=== PATIENT | female | born 1995 | race Caucasian/White ===

== ENCOUNTER → 2020-05-31 | Outpatient (CLI) | payer OTHER ==
--- NOTE | 2020-05-31 14:15 | US ---
EXAMINATION TYPE: US thyroid st tissue head/neck DATE OF EXAM: 05/31/2020 COMPARISON: NONE CLINICAL HISTORY: R22.0 SWELLING/MASS. patient states feeling constant lump in anterior mid neck at a karthikeyan of thyroid. GLAND SIZE: Right Lobe: 4.9 x 1.3 x 1.5 cm Overall Parenchyma: heterogenous Left Lobe: 4.6 x 0.9 x 0.8 cm Overall Parenchyma: heterogeneous Isthmus Thickness: 0.2 cm NODULES RIGHT: # of nodules measured on right: 2 1. 1.4 X 0.9 x 0.8 cm almost completely solid nodule at the mid pole with poorly defined margins; p resent with microcalcifications. This nodule is wider than tall and shows intranodular vascularity. Prior size: no prior 2. 0.2 X 0.3 x 0.2 cm hypoechoic nodule at the mid pole with well-defined margins. This nodule is w ider than tall and shows no intranodular vascularity. Prior size: no prior LEFT: # of nodules measured on left: 1 1. 0.6 X 0.5 x 0.4 cm mixed nodule at the mid pole with well-defined margins. This nodule is wider than tall and shows intranodular vascularity. Prior size: no prior ISTHMUS: # of nodules measured in the isthmus: 0 Bilateral neck scanned, no evidence of lymphadenopathy, masses or fluid collections. Heterogeneous normal-sized thyroid with few subcentimeter nodules, there is dominant 1.4 cm nodule no kamaljit. IMPRESSION: As above. The dominant nodule is a TR 4 lesion. Moderately suspicious. Follow if ? 1 cm and less than 1.5 cm at 1, 2, 3, and 5 y intervals advised.
== END | disposition home or self-care (01) ==
LOC: RADUSWWP 12:07
PROVIDERS: ATTEND Internal Medicine
DX: E04.2 Nontoxic multinodular goiter (principal); Z88.5 Allergy status to narcotic agent
CPT/HCPCS: 76536

== ENCOUNTER 2020-06-14 | Emergency (ER) | payer OTHER ==
[2020-06-14] MEDS ORDERED: SODIUM CHLORIDE 0.9% 1,000 ML IV STA (00:49)
[2020-06-14] MEDS ORDERED: LORazepam 1 MG TAB PO STA (00:51)
--- NOTE | 2020-06-14 00:54 | ED ---
General Adult HPI - General Stated complaint: syncope Time Seen by Provider: 06/14/20 00:36 Source: RN notes reviewed - History of Present Illness Initial comments: 24-year-old female with a past medical history of anxiety, panic attacks, depression presents to the emergency room for several complaints. Patient states these have been ongoing for 2 weeks. She was seen at [facility] and was diagnosed with a panic attack. Patient reports that she has been having feelings of lightheadedness she feels like she is going to pass out. She has also had chest pain that she states worsened when she touches her chest. Patient states she has also had headaches. This morning she states her vision was shaky. She denies fevers or chills. She has also been nauseous episodes of vomiting. She states she was tested for Covid and it was negative.Patient has no other complaints at this time including shortness of breath, chest pain, abdominal pain, nausea or vomiting, or visual changes. - Related Data Home Medications Medication Instructions Recorded Confirmed Pediatric Multivitamin No.30 2 tab PO DAILY 04/04/16 04/04/16 [Multivitamin Children's Gummies] Previous Rx's Medication Instructions Recorded Acetaminophen-Codeine 300-30mg 1 tab PO Q4H PRN #30 tablet 04/05/16 [Tylenol #3] Ibuprofen [Motrin] 600 mg PO Q6HR PRN #30 tab 04/05/16 Allergies Allergy/AdvReac Type Severity Reaction Status Date / Time morphine Allergy Itching Verified 04/04/16 06:31 vancomycin Allergy Rash/Hives Verified 04/04/16 06:30 Review of Systems ROS Statement: Those systems with pertinent positive or pertinent negative responses have been documented in the HPI. ROS Other: All systems not noted in ROS Statement are negative. Past Medical History Past Medical History: No Reported History Additional Past Medical History / Comment(s): Panic attacks, anxiety, depression, ADHD History of Any Multi-Drug Resistant Organisms: MRSA Date of last positivie culture/infection: 2009 MDRO Source:: left leg Additional Past Surgical History / Comment(s): hand Past Psychological History: Anxiety, Depression Past Alcohol Use History: Rare Past Drug Use History: None Reported - Past Family History Mother Family Medical History: No Reported History General Exam General appearance: alert, in no apparent distress, anxious Head exam: Present: atraumatic, normocephalic, normal inspection Eye exam: Present: normal appearance, PERRL, EOMI. Absent: scleral icterus, conjunctival injection, periorbital swelling ENT exam: Present: normal exam, mucous membranes moist Neck exam: Present: normal inspection, full ROM. Absent: tenderness, meningismus, lymphadenopathy Respiratory exam: Present: normal lung sounds bilaterally, chest wall tenderness (Anterior chest wall tenderness). Absent: respiratory distress, wheezes, rales, rhonchi, stridor Cardiovascular Exam: Present: regular rate, normal rhythm, normal heart sounds. Absent: systolic murmur, diastolic murmur, rubs, gallop, clicks GI/Abdominal exam: Present: soft, normal bowel sounds. Absent: distended, tenderness, guarding, rebound, rigid Neurological exam: Present: alert Course Vital Signs 06/14/20 06/14/20 06/14/20 00:52 02:22 02:59 Temperature 98.7 F 98.2 F Pulse Rate 74 97 76 Respiratory 19 18 19 Rate Blood Pressure 116/94 131/68 115/82 O2 Sat by Pulse 99 100 100 Oximetry EKG Findings - EKG Comments: EKG Findings:: Normal sinus rhythm, ventricular rate 73, TN interval 116, QTc 464 Medical Decision Making - Medical Decision Making Vitals are stable. CBC CMP unremarkable. Troponin is negative. Urinalysis negative. HCG not detected. CT brain shows a negative scan. Chest x-ray shows negative films. Patient reevaluated after fluids, think much better. At this time patient is stable for discharge, follow up with primary care. She will return here for any worsening symptoms. - Lab Data Result diagrams: 06/14/20 01:47 06/14/20 01:47 Lab Results 06/14/20 06/14/20 06/14/20 Range/Units 01:36 01:36 01:47 WBC 5.1 (3.8-10.6) k/uL RBC 4.73 (3.80-5.40) m/uL Hgb 11.3 L (11.4-16.0) gm/dL Hct 36.8 (34.0-46.0) % MCV 77.9 L (80.0-100.0) fL MCH 23.9 L (25.0-35.0) pg MCHC 30.7 L (31.0-37.0) g/dL RDW 15.3 (11.5-15.5) % Plt Count 176 (150-450) k/uL Neutrophils % 48 % Lymphocytes % 37 % Monocytes % 8 % Eosinophils % 4 % Basophils % 1 % Neutrophils # 2.5 (1.3-7.7) k/uL Lymphocytes # 1.9 (1.0-4.8) k/uL Monocytes # 0.4 (0-1.0) k/uL Eosinophils # 0.2 (0-0.7) k/uL Basophils # 0.1 (0-0.2) k/uL Hypochromasia Moderate Sodium (137-145) mmol/L Potassium (3.5-5.1) mmol/L Chloride (98-107) mmol/L Carbon Dioxide (22-30) mmol/L Anion Gap mmol/L BUN (7-17) mg/dL Creatinine (0.52-1.04) mg/dL Est GFR (CKD-EPI)AfAm (>60 ml/min/1.73 sqM) Est GFR (CKD-EPI)NonAf (>60 ml/min/1.73 sqM) Glucose (74-99) mg/dL Calcium (8.4-10.2) mg/dL Total Bilirubin (0.2-1.3) mg/dL AST (14-36) U/L ALT (4-34) U/L Alkaline Phosphatase (38-126) U/L Troponin I (0.000-0.034) ng/mL Total Protein (6.3-8.2) g/dL Albumin (3.5-5.0) g/dL Urine Color Yellow Urine Appearance Clear (Clear) Urine pH 6.0 (5.0-8.0) Ur Specific [place] 1.038 H (1.001-1.035) Urine Protein 1+ H (Negative) Urine Glucose (UA) Negative (Negative) Urine Ketones Trace H (Negative) Urine Blood Negative (Negative) Urine Nitrite Negative (Negative) Urine Bilirubin Negative (Negative) Urine Urobilinogen <2.0 (<2.0) mg/dL Ur Leukocyte Esterase Negative (Negative) Urine RBC 2 (0-5) /hpf Urine WBC 1 (0-5) /hpf Ur Squamous Epith Cells 1 (0-4) /hpf Urine Mucus Many H (None) /hpf Urine HCG, Qual Not Detected (Not Detectd) 06/14/20 06/14/20 Range/Units 01:47 01:47 WBC (3.8-10.6) k/uL RBC (3.80-5.40) m/uL Hgb (11.4-16.0) gm/dL Hct (34.0-46.0) % MCV (80.0-100.0) fL MCH (25.0-35.0) pg MCHC (31.0-37.0) g/dL RDW (11.5-15.5) % Plt Count (150-450) k/uL Neutrophils % % Lymphocytes % % Monocytes % % Eosinophils % % Basophils % % Neutrophils # (1.3-7.7) k/uL Lymphocytes # (1.0-4.8) k/uL Monocytes # (0-1.0) k/uL Eosinophils # (0-0.7) k/uL Basophils # (0-0.2) k/uL Hypochromasia Sodium 138 (137-145) mmol/L Potassium 4.1 (3.5-5.1) mmol/L Chloride 102 (98-107) mmol/L Carbon Dioxide 27 (22-30) mmol/L Anion Gap 9 mmol/L BUN 13 (7-17) mg/dL Creatinine 0.53 (0.52-1.04) mg/dL Est GFR (CKD-EPI)AfAm >90 (>60 ml/min/1.73 sqM) Est GFR (CKD-EPI)NonAf >90 (>60 ml/min/1.73 sqM) Glucose 95 (74-99) mg/dL Calcium 9.7 (8.4-10.2) mg/dL Total Bilirubin 1.0 (0.2-1.3) mg/dL AST 68 H (14-36) U/L ALT 52 H (4-34) U/L Alkaline Phosphatase 68 (38-126) U/L Troponin I <0.012 (0.000-0.034) ng/mL Total Protein 8.6 H (6.3-8.2) g/dL Albumin 5.0 (3.5-5.0) g/dL Urine Color Urine Appearance (Clear) Urine pH (5.0-8.0) Ur Specific [place] (1.001-1.035) Urine Protein (Negative) Urine Glucose (UA) (Negative) Urine Ketones (Negative) Urine Blood (Negative) Urine Nitrite (Negative) Urine Bilirubin (Negative) Urine Urobilinogen (<2.0) mg/dL Ur Leukocyte Esterase (Negative) Urine RBC (0-5) /hpf Urine WBC (0-5) /hpf Ur Squamous Epith Cells (0-4) /hpf Urine Mucus (None) /hpf Urine HCG, Qual (Not Detectd) Disposition Clinical Impression: Light headedness Disposition: HOME SELF-CARE Condition: Good Instructions (If sedation given, give patient instructions): Lightheadedness (ED) Additional Instructions: Please drink plenty of fluids. Please follow-up with your doctor in one to 2 days. Return to the emergency room for any worsening symptoms. Is patient prescribed a controlled substance at d/c from ED?: No Referrals: Rigo Wiley MD [Primary Care Provider] - 1-2 days Dontrell Coyne [STAFF PHYSICIAN] - 1-2 days Time of Disposition: 03:25
[2020-06-14 01:43] LABS: Appearance,Urine Clear (Clear); Bilirubin,Urine Negative (Negative); Blood,Urine Negative (Negative); Color,Urine Yellow; Glucose,Urine (UA) Negative (Negative); Ketones,Urine Trace (Negative); Leukocyte Esterase,Urine Negative (Negative); Mucus,Urine Many /hpf; Nitrite,Urine Negative (Negative); Protein,Urine 1+ (Negative); RBC,Urine 2 /hpf (0-5); Specific Gravity,Urine 1.038 (1.001-1.035); Squamous Epithelial Cell,Urine 1 /hpf (0-4); Urobilinogen,Urine <2.0 mg/dL (<2.0); WBC,Urine 1 /hpf (0-5)
[2020-06-14 02:27] VITALS: TEMP 98.2
[2020-06-14 02:28] LABS: Basophils # (A) 0.1 k/uL (0-0.2); Basophils % (A) 1 %; Eosinophils # (A) 0.2 k/uL (0-0.7); Eosinophils % (A) 4 %; HCT 36.8 % (34.0-46.0); HGB 11.3 gm/dL (11.4-16.0); Hypochromasia Moderate; Lymphocytes # (A) 1.9 k/uL (1.0-4.8); Lymphocytes % (A) 37 %; MCH 23.9 pg (25.0-35.0); MCHC 30.7 g/dL (31.0-37.0); MCV 77.9 fL (80.0-100.0); Mean Platelet Volume 7.1; Monocytes # (A) 0.4 k/uL (0-1.0); Monocytes % (A) 8 %; Neutrophils # (A) 2.5 k/uL (1.3-7.7); Neutrophils % (A) 48 %; Platelet Count 176 k/uL (150-450); RBC 4.73 m/uL (3.80-5.40); RDW 15.3 % (11.5-15.5); WBC 5.1 k/uL (3.8-10.6)
[2020-06-14 02:38] LABS: ALT 52 U/L (4-34); AST 68 U/L (14-36); African American GFR (CKD) >90 (>60 ml/min/1.73 sqM); Alkaline Phosphatase 68 U/L (38-126); Anion Gap 9 mmol/L; Blood Urea Nitrogen 13 mg/dL (7-17); Calcium 9.7 mg/dL (8.4-10.2); Carbon Dioxide 27 mmol/L (22-30); Chloride 102 mmol/L (98-107); Glucose 95 mg/dL (74-99); Non-African American GFR(CKD) >90 (>60 ml/min/1.73 sqM); Potassium 4.1 mmol/L (3.5-5.1); Sodium 138 mmol/L (137-145); Total Protein 8.6 g/dL (6.3-8.2)
--- NOTE | 2020-06-14 02:57 | CT ---
EXAM: CT Head Without Intravenous Contrast CLINICAL HISTORY: Syncope TECHNIQUE: Axial computed tomography images of the head/brain without intravenous contrast. CTDI is 45.37 mGy and DLP is 1039 mGy-cm. This CT exam was performed using one or more of the following dose reduction techniques: automated exposure control, adjustment of the mA and/or kV according to patient size, and/or use of iterative reconstruction technique. COMPARISON: No relevant prior studies available. FINDINGS: Brain: Unremarkable. No acute intracranial hemorrhage, edema or abnormal mass-effect. Ventricles: Unremarkable. No ventriculomegaly. Bones/joints: Unremarkable. No acute fracture. Soft tissues: Unremarkable. Sinuses: Unremarkable as visualized. No acute sinusitis. Mastoid air cells: Unremarkable as visualized. No mastoid effusion. IMPRESSION: Negative head/brain CT.
--- NOTE | 2020-06-14 03:06 | XR ---
EXAM: XR Chest, 2 Views CLINICAL HISTORY: Syncope. TECHNIQUE: Frontal and lateral views of the chest. COMPARISON: No relevant prior studies available. FINDINGS: Lungs: Unremarkable. No infiltration, atelectasis or mass density. Pleural space: Unremarkable. No pneumothorax. No pleural fluid. Heart: Unremarkable. No cardiomegaly. Mediastinum: Unremarkable. Bones/joints: Unremarkable. No acute abnormalities. IMPRESSION: Negative chest x-rays.
[2020-06-14 03:36] VITALS: BP 115/90; PULSE 95; RESP 16
== END 2020-06-14 03:37 | disposition home or self-care (01) ==
LOC: EC
DX: R42 Dizziness and giddiness (principal); R11.2 Nausea with vomiting, unspecified; F17.200 Nicotine dependence, unspecified, uncomplicated; Z88.1 Allergy status to other antibiotic agents; Z88.5 Allergy status to narcotic agent; Z86.14 Personal history of Methicillin resistant Staphylococcus aureus infection; Z20.828 Contact with and (suspected) exposure to other viral communicable diseases
CPT/HCPCS: 36415; 70450; 71046; 80053; 81001; 81025; 84484; 85025; 93005; 96360; 99284

== ENCOUNTER 2020-10-22 12:49 | Observation (INO) | payer OTHER ==
[2020-10-22] MEDS ORDERED: SODIUM CHLORIDE 0.9% 1,000 ML IV STA (13:21)
[2020-10-22] MEDS ORDERED: ONDANSETRON 4 MG/2 ML VIAL IVP STA ×2 (13:21→14:51)
[2020-10-22] MEDS ORDERED: LORazepam 2 MG/ML INJ IV STA (13:22)
--- NOTE | 2020-10-22 13:24 | ED ---
General Adult HPI - General Chief complaint: Dizziness Stated complaint: Near syncope, R arm numbness Time Seen by Provider: 10/22/20 13:15 Source: patient, RN notes reviewed, old records reviewed Mode of arrival: ambulatory Limitations: physical limitation - History of Present Illness Initial comments: 25-year-old female presenting with nausea and vomiting. Symptoms began this morning. She's had multiple episodes of vomiting. No diarrhea. No abdominal pain. No fever. She does admit to heavy alcohol consumption yesterday and a small amount of alcohol consumption this morning. She states that she does drink heavily on a daily basis. She denies current stating she is currently on her menstrual cycle. No fever. No one else is sick. - Related Data Home Medications Medication Instructions Recorded Confirmed Pediatric Multivitamin No.30 2 tab PO DAILY 04/04/16 04/04/16 [Multivitamin Children's Gummies] Previous Rx's Medication Instructions Recorded Acetaminophen-Codeine 300-30mg 1 tab PO Q4H PRN #30 tablet 04/05/16 [Tylenol #3] Ibuprofen [Motrin] 600 mg PO Q6HR PRN #30 tab 04/05/16 Allergies Allergy/AdvReac Type Severity Reaction Status Date / Time diphenhydramine Allergy paradoxal Verified 10/22/20 13:02 [From Benadryl] affect morphine Allergy Itching Verified 10/22/20 13:02 vancomycin Allergy Rash/Hives Verified 10/22/20 13:02 Review of Systems ROS Statement: Those systems with pertinent positive or pertinent negative responses have been documented in the HPI. ROS Other: All systems not noted in ROS Statement are negative. Past Medical History Past Medical History: No Reported History Additional Past Medical History / Comment(s): Panic attacks, anxiety, depression, ADHD History of Any Multi-Drug Resistant Organisms: MRSA Date of last positivie culture/infection: 2009 MDRO Source:: left leg Additional Past Surgical History / Comment(s): hand Past Psychological History: Anxiety, Depression Smoking Status: Current every day smoker Past Alcohol Use History: Daily, Heavy Past Drug Use History: None Reported - Past Family History Mother Family Medical History: No Reported History General Exam Limitations: physical limitation General appearance: alert, in no apparent distress, other (Tremulous) Head exam: Present: atraumatic, normocephalic ENT exam: Present: mucous membranes moist Neck exam: Present: normal inspection. Absent: tenderness, meningismus Respiratory exam: Present: normal lung sounds bilaterally. Absent: respiratory distress, wheezes Cardiovascular Exam: Present: normal rhythm, tachycardia GI/Abdominal exam: Present: soft. Absent: distended, tenderness, guarding, rebound Extremities exam: Present: normal inspection, normal capillary refill. Absent: pedal edema, calf tenderness Neurological exam: Present: alert, oriented X3, CN II-XII intact. Absent: motor sensory deficit Psychiatric exam: Present: normal affect, normal mood Skin exam: Present: warm, dry, intact. Absent: cyanosis, diaphoretic Course Vital Signs 10/22/20 10/22/20 10/22/20 12:56 14:00 14:10 Temperature 98.1 F Pulse Rate 127 H 113 H 108 H Respiratory 18 18 13 Rate Blood Pressure 160/89 139/99 138/94 O2 Sat by Pulse 100 99 98 Oximetry 10/22/20 15:00 Temperature Pulse Rate 110 H Respiratory 16 Rate Blood Pressure 143/88 O2 Sat by Pulse 100 Oximetry EKG Findings - EKG Comments: EKG Findings:: EKG: Sinus tachycardia, possible left atrial enlargement, rate of 1:15, AR interval 132, QRS duration 74, QTC [address] segment elevation. Medical Decision Making - Medical Decision Making 25 no female nausea vomiting, lightheadedness. Alcohol consumption. Patient is tachycardic, tremulous, with acute nausea and vomiting on presentation. She is afebrile. No abdominal pain complaints. Only vomiting. She's given fluids, Zofran, Ativan. She does have some improvement. Laboratory testing reveals significant abnormalities including hypokalemia, metabolic acidosis, lactic acidosis, urinalysis showed 2+ ketones consistent with dehydration. She is continued on IV hydration as well as symptomatic control. Repeat lactic is improved at 3.7. She will be placed in observation for continuous IV hydration and symptom control awaiting normalization of electrolytes and acidosis. Case discussed with Dr. Pinzon who will admit. - Lab Data Result diagrams: 10/22/20 13:29 10/22/20 13:29 Lab Results 10/22/20 10/22/20 10/22/20 Range/Units 13:29 13:29 13:29 WBC 7.1 (3.8-10.6) k/uL RBC 4.73 (3.80-5.40) m/uL Hgb 12.2 (11.4-16.0) gm/dL Hct 39.7 (34.0-46.0) % MCV 84.0 (80.0-100.0) fL MCH 25.9 (25.0-35.0) pg MCHC 30.8 L (31.0-37.0) g/dL RDW 16.1 H (11.5-15.5) % Plt Count 295 (150-450) k/uL MPV 6.8 Neutrophils % 76 % Lymphocytes % 15 % Monocytes % 6 % Eosinophils % 1 % Basophils % 1 % Neutrophils # 5.4 (1.3-7.7) k/uL Lymphocytes # 1.0 (1.0-4.8) k/uL Monocytes # 0.4 (0-1.0) k/uL Eosinophils # 0.1 (0-0.7) k/uL Basophils # 0.0 (0-0.2) k/uL Hypochromasia Moderate Anisocytosis Slight PT 10.6 (9.0-12.0) sec INR 1.0 (<1.2) APTT 21.6 L (22.0-30.0) sec Sodium (137-145) mmol/L Potassium (3.5-5.1) mmol/L Chloride (98-107) mmol/L Carbon Dioxide (22-30) mmol/L Anion Gap mmol/L BUN (7-17) mg/dL Creatinine (0.52-1.04) mg/dL Est GFR (CKD-EPI)AfAm (>60 ml/min/1.73 sqM) Est GFR (CKD-EPI)NonAf (>60 ml/min/1.73 sqM) Glucose (74-99) mg/dL Plasma Lactic Acid Jorge (0.7-2.0) mmol/L Calcium (8.4-10.2) mg/dL Magnesium (1.6-2.3) mg/dL Total Bilirubin (0.2-1.3) mg/dL AST (14-36) U/L ALT (4-34) U/L Alkaline Phosphatase (38-126) U/L Troponin I (0.000-0.034) ng/mL Total Protein (6.3-8.2) g/dL Albumin (3.5-5.0) g/dL Amylase (30-110) U/L Lipase (23-300) U/L Urine Color Yellow Urine Appearance Cloudy H (Clear) Urine pH 5.5 (5.0-8.0) Ur Specific [place] 1.022 (1.001-1.035) Urine Protein 1+ H (Negative) Urine Glucose (UA) Negative (Negative) Urine Ketones 2+ H (Negative) Urine Blood Negative (Negative) Urine Nitrite Negative (Negative) Urine Bilirubin Negative (Negative) Urine Urobilinogen <2.0 (<2.0) mg/dL Ur Leukocyte Esterase Negative (Negative) Urine RBC 7 H (0-5) /hpf Urine WBC 5 (0-5) /hpf Ur Squamous Epith Cells 12 H (0-4) /hpf Amorphous Sediment Rare H (None) /hpf Urine Bacteria Occasional H (None) /hpf Urine Mucus Many H (None) /hpf Urine HCG, Qual (Not Detectd) 10/22/20 10/22/20 10/22/20 Range/Units 13:29 13:29 13:29 WBC (3.8-10.6) k/uL RBC (3.80-5.40) m/uL Hgb (11.4-16.0) gm/dL Hct (34.0-46.0) % MCV (80.0-100.0) fL MCH (25.0-35.0) pg MCHC (31.0-37.0) g/dL RDW (11.5-15.5) % Plt Count (150-450) k/uL MPV Neutrophils % % Lymphocytes % % Monocytes % % Eosinophils % % Basophils % % Neutrophils # (1.3-7.7) k/uL Lymphocytes # (1.0-4.8) k/uL Monocytes # (0-1.0) k/uL Eosinophils # (0-0.7) k/uL Basophils # (0-0.2) k/uL Hypochromasia Anisocytosis PT (9.0-12.0) sec INR (<1.2) APTT (22.0-30.0) sec Sodium 139 (137-145) mmol/L Potassium 3.2 L (3.5-5.1) mmol/L Chloride 102 (98-107) mmol/L Carbon Dioxide 15 L (22-30) mmol/L Anion Gap 22 mmol/L BUN 12 (7-17) mg/dL Creatinine 0.47 L (0.52-1.04) mg/dL Est GFR (CKD-EPI)AfAm >90 (>60 ml/min/1.73 sqM) Est GFR (CKD-EPI)NonAf >90 (>60 ml/min/1.73 sqM) Glucose 108 H (74-99) mg/dL Plasma Lactic Acid Jorge 8.0 H* (0.7-2.0) mmol/L Calcium 9.2 (8.4-10.2) mg/dL Magnesium (1.6-2.3) mg/dL Total Bilirubin 0.9 (0.2-1.3) mg/dL AST 100 H (14-36) U/L ALT 73 H (4-34) U/L Alkaline Phosphatase 88 (38-126) U/L Troponin I (0.000-0.034) ng/mL Total Protein 9.0 H (6.3-8.2) g/dL Albumin 5.4 H (3.5-5.0) g/dL Amylase 60 (30-110) U/L Lipase 75 (23-300) U/L Urine Color Urine Appearance (Clear) Urine pH (5.0-8.0) Ur Specific [place] (1.001-1.035) Urine Protein (Negative) Urine Glucose (UA) (Negative) Urine Ketones (Negative) Urine Blood (Negative) Urine Nitrite (Negative) Urine Bilirubin (Negative) Urine Urobilinogen (<2.0) mg/dL Ur Leukocyte Esterase (Negative) Urine RBC (0-5) /hpf Urine WBC (0-5) /hpf Ur Squamous Epith Cells (0-4) /hpf Amorphous Sediment (None) /hpf Urine Bacteria (None) /hpf Urine Mucus (None) /hpf Urine HCG, Qual Not Detected (Not Detectd) 10/22/20 10/22/20 10/22/20 Range/Units 13:29 13:29 14:39 WBC (3.8-10.6) k/uL RBC (3.80-5.40) m/uL Hgb (11.4-16.0) gm/dL Hct (34.0-46.0) % MCV (80.0-100.0) fL MCH (25.0-35.0) pg MCHC (31.0-37.0) g/dL RDW (11.5-15.5) % Plt Count (150-450) k/uL MPV Neutrophils % % Lymphocytes % % Monocytes % % Eosinophils % % Basophils % % Neutrophils # (1.3-7.7) k/uL Lymphocytes # (1.0-4.8) k/uL Monocytes # (0-1.0) k/uL Eosinophils # (0-0.7) k/uL Basophils # (0-0.2) k/uL Hypochromasia Anisocytosis PT (9.0-12.0) sec INR (<1.2) APTT (22.0-30.0) sec Sodium (137-145) mmol/L Potassium (3.5-5.1) mmol/L Chloride (98-107) mmol/L Carbon Dioxide (22-30) mmol/L Anion Gap mmol/L BUN (7-17) mg/dL Creatinine (0.52-1.04) mg/dL Est GFR (CKD-EPI)AfAm (>60 ml/min/1.73 sqM) Est GFR (CKD-EPI)NonAf (>60 ml/min/1.73 sqM) Glucose (74-99) mg/dL Plasma Lactic Acid Jorge 3.7 H* (0.7-2.0) mmol/L Calcium (8.4-10.2) mg/dL Magnesium 1.7 (1.6-2.3) mg/dL Total Bilirubin (0.2-1.3) mg/dL AST (14-36) U/L ALT (4-34) U/L Alkaline Phosphatase (38-126) U/L Troponin I <0.012 (0.000-0.034) ng/mL Total Protein (6.3-8.2) g/dL Albumin (3.5-5.0) g/dL Amylase (30-110) U/L Lipase (23-300) U/L Urine Color Urine Appearance (Clear) Urine pH (5.0-8.0) Ur Specific [place] (1.001-1.035) Urine Protein (Negative) Urine Glucose (UA) (Negative) Urine Ketones (Negative) Urine Blood (Negative) Urine Nitrite (Negative) Urine Bilirubin (Negative) Urine Urobilinogen (<2.0) mg/dL Ur Leukocyte Esterase (Negative) Urine RBC (0-5) /hpf Urine WBC (0-5) /hpf Ur Squamous Epith Cells (0-4) /hpf Amorphous Sediment (None) /hpf Urine Bacteria (None) /hpf Urine Mucus (None) /hpf Urine HCG, Qual (Not Detectd) Disposition Clinical Impression: Dehydration, Lactic acid acidosis, Nausea & vomiting Disposition: ADMITTED IP TO THIS [facility] Condition: Stable Is patient prescribed a controlled substance at d/c from ED?: No Referrals: Rigo Wiley MD [Primary Care Provider] - 1-2 days Decision to Admit Reason: Admit from EC Decision Date: 10/22/20 Decision Time: 15:27
[2020-10-22 13:39] LABS: Anisocytosis Slight; Basophils % (A) 1 %; Eosinophils # (A) 0.1 k/uL (0-0.7); Eosinophils % (A) 1 %; HCT 39.7 % (34.0-46.0); HGB 12.2 gm/dL (11.4-16.0); Hypochromasia Moderate; Lymphocytes % (A) 15 %; MCH 25.9 pg (25.0-35.0); MCHC 30.8 g/dL (31.0-37.0); Mean Platelet Volume 6.8; Monocytes # (A) 0.4 k/uL (0-1.0); Monocytes % (A) 6 %; Neutrophils # (A) 5.4 k/uL (1.3-7.7); Neutrophils % (A) 76 %; Platelet Count 295 k/uL (150-450); RBC 4.73 m/uL (3.80-5.40); RDW 16.1 % (11.5-15.5); WBC 7.1 k/uL (3.8-10.6)
[2020-10-22 13:47] LABS: ALT 73 U/L (4-34); AST 100 U/L (14-36); African American GFR (CKD) >90 (>60 ml/min/1.73 sqM); Albumin 5.4 g/dL (3.5-5.0); Alkaline Phosphatase 88 U/L (38-126); Amylase 60 U/L (30-110); Anion Gap 22 mmol/L; Blood Urea Nitrogen 12 mg/dL (7-17); Calcium 9.2 mg/dL (8.4-10.2); Carbon Dioxide 15 mmol/L (22-30); Chloride 102 mmol/L (98-107); Glucose 108 mg/dL (74-99); Lipase 75 U/L (23-300); Non-African American GFR(CKD) >90 (>60 ml/min/1.73 sqM); Potassium 3.2 mmol/L (3.5-5.1); Sodium 139 mmol/L (137-145); Total Bilirubin 0.9 mg/dL (0.2-1.3)
[2020-10-22 13:55] LABS: Amorphous Sediment,Urine Rare /hpf; Appearance,Urine Cloudy (Clear); Bacteria,Urine Occasional /hpf; Bilirubin,Urine Negative (Negative); Blood,Urine Negative (Negative); Color,Urine Yellow; Glucose,Urine (UA) Negative (Negative); Ketones,Urine 2+ (Negative); Leukocyte Esterase,Urine Negative (Negative); Mucus,Urine Many /hpf; Nitrite,Urine Negative (Negative); PH, Urine 5.5 (5.0-8.0); Protein,Urine 1+ (Negative); RBC,Urine 7 /hpf (0-5); Specific Gravity,Urine 1.022 (1.001-1.035); Squamous Epithelial Cell,Urine 12 /hpf (0-4); Urobilinogen,Urine <2.0 mg/dL (<2.0); WBC,Urine 5 /hpf (0-5)
[2020-10-22 13:59] LABS: Prothrombin Time 10.6 sec (9.0-12.0)
[2020-10-22 14:00] LABS: Partial Thromboplastin Time 21.6 sec (22.0-30.0)
[2020-10-22] MEDS ORDERED: SODIUM CHLORIDE 0.9% 1,000 ML IV ONE (14:00)
--- NOTE | 2020-10-22 14:46 | XR ---
EXAMINATION TYPE: XR KUB DATE OF EXAM: 10/22/2020 COMPARISON: 09/16/2014 HISTORY: Abdominal pain weakness. TECHNIQUE: 2 views upright FINDINGS: There is no sign of intestinal obstruction or pneumoperitoneum. Fecal pattern is normal. Th ere is no sign of a mass. Lung bases are clear. There are no pathologic calcifications over the kidne ys. IMPRESSION: Nonacute abdomen. No change.
[2020-10-22] MEDS: SODIUM CHLORIDE 0.9% 1,000 ML IV SCH (15:01)
[2020-10-22] MEDS: POTASSIUM CHLORIDE 10 MEQ in WATER FOR INJECTION 1 100ML.BAG IVPB SCH ×4 (15:19→18:43)
[2020-10-22] MEDS ORDERED: LORazepam 2 MG/ML INJ IV PRN ×2 (15:23)
[2020-10-22] MEDS ORDERED: THIAMINE 100 MG/ML 2 ML VIAL IM STA (15:23)
[2020-10-22] MEDS ORDERED: ONDANSETRON 4 MG/2 ML VIAL IVP PRN (15:24)
[2020-10-22] MEDS ORDERED: NALOXONE 0.4 MG/ML 1 ML VIAL IV PRN (15:24)
[2020-10-22] MEDS ORDERED: PANTOPRAZOLE 40 MG/10 ML VIAL IV SCH (15:30)
[2020-10-22] MEDS: LORazepam 2 MG/ML INJ IV PRN ×2 (16:03→17:54)
[2020-10-22] MEDS: THIAMINE 100 MG TAB PO SCH (16:59)
--- NOTE | 2020-10-22 18:19 | P.HPIM ---
History of Present Illness 25-year-old female presenting with nausea and vomiting. Symptoms began this morning. She's had multiple episodes of vomiting. No diarrhea. No abdominal pain. No fever. She does admit to heavy alcohol consumption yesterday and a small amount of alcohol consumption this morning. She states that she does drink heavily on a daily basis. She denies current stating she is currently on her menstrual cycle. No fever. No one else is sick. Patient drinks about one fifth of hard liquor every single day. Patient is found to have lactic acidosis appear to be dehydrated . She and was willing to quit alcohol. She states she doesn't like it any more. Does smoke 1 pack of cigarettes per day Review of Systems REVIEW OF SYSTEMS: CONSTITUTIONAL: No fever, no malaise, no fatigue. HEENT: No recent visual problems or hearing problems. Denied any sore throat. CARDIOVASCULAR: No chest pain, orthopnea, PND, no palpitations, no syncope. PULMONARY: No shortness of breath, no cough, no hemoptysis. GASTROINTESTINAL: As mentioned in HPI NEUROLOGICAL: No headaches, no weakness, no numbness. HEMATOLOGICAL: Denies any bleeding or petechiae. GENITOURINARY: Denies any burning micturition, frequency, or urgency. MUSCULOSKELETAL/RHEUMATOLOGICAL: Denies any joint pain, swelling, or any muscle pain. ENDOCRINE: Denies any polyuria or polydipsia. The rest of the 14-point review of systems is negative. Past Medical History Past Medical History: No Reported History Additional Past Medical History / Comment(s): Panic attacks, anxiety, depression, ADHD History of Any Multi-Drug Resistant Organisms: MRSA Date of last positivie culture/infection: 2009 MDRO Source:: left leg Additional Past Surgical History / Comment(s): hand Past Psychological History: Anxiety, Depression Smoking Status: Current every day smoker Past Alcohol Use History: Daily, Heavy Additional Past Alcohol Use History / Comment(s): 1 5th a day whisky Past Drug Use History: None Reported - Past Family History Mother Family Medical History: No Reported History Medications and Allergies Home Medications Medication Instructions Recorded Confirmed Type Aspirin/Acetaminophen/Caffeine 1 tab PO DAILY PRN 10/22/20 10/22/20 History [Excedrin Migraine Caplet] Buprenorphine HCl/Naloxone HCl 1 film SUBLINGUAL BID PRN 10/22/20 10/22/20 History [Suboxone 8 mg-2 mg Sl Film] Lurasidone [Latuda] 20 mg PO HS 10/22/20 10/22/20 History Ondansetron Odt [Zofran ODT] 4 mg PO Q8H PRN 10/22/20 10/22/20 History Allergies Allergy/AdvReac Type Severity Reaction Status Date / Time diphenhydramine Allergy paradoxal Verified 10/22/20 18:09 [From Benadryl] affect morphine Allergy Itching Verified 10/22/20 18:09 vancomycin Allergy Rash/Hives Verified 10/22/20 18:09 Physical Exam Vitals: Vital Signs Temp Pulse Pulse Resp BP BP Pulse Ox 10/22/20 16:55 98.1 F 96 16 137/95 98 10/22/20 16:00 110 H 18 141/98 99 10/22/20 15:30 129 H 20 143/88 99 10/22/20 15:00 110 H 16 143/88 100 10/22/20 14:10 108 H 13 138/94 98 10/22/20 14:00 113 H 18 139/99 99 10/22/20 12:56 98.1 F 127 H 18 160/89 100 Intake and Output 10/22/20 10/22/20 10/22/20 06:59 14:59 22:59 Other: Weight 68.946 kg 68.946 kg PHYSICAL EXAMINATION: GENERAL: The patient is alert and oriented x3, she is in distress because of severe nausea. Well developed, well nourished. HEENT: Pupils are round and equally reacting to light. EOMI. No scleral icterus. No conjunctival pallor. Normocephalic, atraumatic. No pharyngeal erythema. No thyromegaly. CARDIOVASCULAR: S1 and S2 present. No murmurs, rubs, or gallops. PULMONARY: Chest is clear to auscultation, no wheezing or crackles. ABDOMEN: Soft, nontender, nondistended, normoactive bowel sounds. No palpable organomegaly. MUSCULOSKELETAL: No joint swelling or deformity. EXTREMITIES: No cyanosis, clubbing, or pedal edema. NEUROLOGICAL: Gross neurological examination did not reveal any focal deficits. SKIN: No rashes. Results CBC & Chem 7: 10/22/20 13:29 10/22/20 13:29 Labs: Abnormal Lab Results - Last 24 Hours (Table) 10/22/20 10/22/20 10/22/20 Range/Units 13:29 13:29 13:29 MCHC 30.8 L (31.0-37.0) g/dL RDW 16.1 H (11.5-15.5) % APTT 21.6 L (22.0-30.0) sec Potassium (3.5-5.1) mmol/L Carbon Dioxide (22-30) mmol/L Creatinine (0.52-1.04) mg/dL Glucose (74-99) mg/dL Plasma Lactic Acid Jorge (0.7-2.0) mmol/L AST (14-36) U/L ALT (4-34) U/L Total Protein (6.3-8.2) g/dL Albumin (3.5-5.0) g/dL Urine Appearance Cloudy H (Clear) Urine Protein 1+ H (Negative) Urine Ketones 2+ H (Negative) Urine RBC 7 H (0-5) /hpf Ur Squamous Epith Cells 12 H (0-4) /hpf Amorphous Sediment Rare H (None) /hpf Urine Bacteria Occasional H (None) /hpf Urine Mucus Many H (None) /hpf 10/22/20 10/22/20 10/22/20 Range/Units 13:29 13:29 14:39 MCHC (31.0-37.0) g/dL RDW (11.5-15.5) % APTT (22.0-30.0) sec Potassium 3.2 L (3.5-5.1) mmol/L Carbon Dioxide 15 L (22-30) mmol/L Creatinine 0.47 L (0.52-1.04) mg/dL Glucose 108 H (74-99) mg/dL Plasma Lactic Acid Jorge 8.0 H* 3.7 H* (0.7-2.0) mmol/L AST 100 H (14-36) U/L ALT 73 H (4-34) U/L Total Protein 9.0 H (6.3-8.2) g/dL Albumin 5.4 H (3.5-5.0) g/dL Urine Appearance (Clear) Urine Protein (Negative) Urine Ketones (Negative) Urine RBC (0-5) /hpf Ur Squamous Epith Cells (0-4) /hpf Amorphous Sediment (None) /hpf Urine Bacteria (None) /hpf Urine Mucus (None) /hpf Thrombosis Risk Factor Assmnt - Choose All That Apply Any of the Below Risk Factors Present?: No Assessment and Plan Plan: -Alcoholic gastritis leading to nausea vomiting: Patient will be on Protonix twice a day IV fluids -Lactic acidosis secondary to severe dehydration from nausea vomiting as well as alcoholism IV fluids as mentioned above -Acute alcoholic keratitis -Alcohol abuse -Alcohol withdrawal: Patient will be on Ativan CIWA protocol -Hypokalemia potassium will be replaced -Asymptomatic bacteriuria will not require any antibiotics patient doesn't have any UTI symptoms.
[2020-10-22] MEDS: NICOTINE 21MG/24HR PATCH TRANSDERM SCH (18:43)
[2020-10-22] MEDS: PANTOPRAZOLE 40 MG/10 ML VIAL IV SCH (20:20)
[2020-10-23] MEDS: SODIUM CHLORIDE 0.9% 1,000 ML IV SCH ×3 (02:41→20:13)
[2020-10-23] MEDS: PANTOPRAZOLE 40 MG/10 ML VIAL IV SCH ×2 (07:31→20:13)
[2020-10-23] MEDS: NICOTINE 21MG/24HR PATCH TRANSDERM SCH (07:32)
[2020-10-23] MEDS: THIAMINE 100 MG TAB PO SCH ×2 (07:32→16:45)
[2020-10-23 07:56] VITALS: RESP 18
[2020-10-23 09:12] LABS: Basophils # (A) 0.03 X 10*3/uL (0.00-0.10); Basophils % (A) 0.5 %; Eosinophils # (A) 0.09 X 10*3/uL (0.04-0.35); Eosinophils % (A) 1.4 %; HCT 31.4 % (37.2-46.3); HGB 9.1 g/dL (12.0-15.0); Lymphocytes # (A) 1.05 X 10*3/uL (0.90-5.00); Lymphocytes % (A) 16.2 %; MCH 25.1 pg (27.0-32.0); MCV 86.7 fL (80.0-97.0); Mean Platelet Volume 9.9 fL (9.5-12.2); Monocytes # (A) 0.54 X 10*3/uL (0.20-1.00); Monocytes % (A) 8.3 %; Neutrophils # (A) 4.74 X 10*3/uL (1.80-7.70); Neutrophils % (A) 73.1 %; Platelet Count 174 X 10*3/uL (140-440); RBC 3.62 X 10*6/uL (4.10-5.20); RDW 16.4 % (11.5-14.5); WBC 6.48 X 10*3/uL (4.50-10.00)
[2020-10-23 09:54] LABS: African American GFR (CKD) 165.4 (60.0-200.0); Albumin 3.9 g/dL (3.80-4.90); Albumin/Globulin Ratio 1.95 (1.60-3.17); Anion Gap 9.4 mmol/L (4.00-12.00); Calcium 7.4 mg/dL (8.7-10.3); Carbon Dioxide 23.6 mmol/L (21.6-31.8); Magnesium 1.4 mg/dL (1.5-2.4); Non-African American GFR(CKD) 142.7 (60.0-200.0); Potassium 3.9 mmol/L (3.5-5.5); Total Bilirubin 0.9 mg/dL (0.2-1.2); Total Protein 5.9 g/dL (6.2-8.2)
[2020-10-23] MEDS ORDERED: NON FORMULARY DRUG (Buprenorphine Hcl/Naloxone Hcl [Suboxone 8 Mg-2 Mg Sl Film] 1 EACH Fil SUBLINGUAL PRN (11:55)
[2020-10-23] MEDS ORDERED: ONDANSETRON ODT 4 MG TAB PO PRN (11:55)
[2020-10-23] MEDS: MAGNESIUM SULFATE-D5W PMX 1 GM in DEXTROSE/WATER 1 100ML.BAG IVPB SCH ×3 (12:20→14:21)
[2020-10-23] MEDS ORDERED: ACETAMINOPHEN TAB 325 MG TAB PO PRN (13:16)
[2020-10-23] MEDS: LORazepam 2 MG/ML INJ IV PRN ×2 (14:26→22:02)
--- NOTE | 2020-10-23 15:18 | P.PN ---
Subjective 25-year-old female presenting with nausea and vomiting. Symptoms began this morning. She's had multiple episodes of vomiting. No diarrhea. No abdominal pain. No fever. She does admit to heavy alcohol consumption yesterday and a small amount of alcohol consumption this morning. She states that she does drink heavily on a daily basis. She denies current stating she is currently on her menstrual cycle. No fever. No one else is sick. Patient drinks about one fifth of hard liquor every single day. Patient is found to have lactic acidosis appear to be dehydrated . She and was willing to quit alcohol. She states she doesn't like it any more. Does smoke 1 pack of cigarettes per day. 10/23/2020 Patient and he is still tachycardic. Magnesium is low which will be replaced. Potassium is 3.9 today patient is not having any withdrawals did receive Ativan last night. We will obtain TSH patient doesn't have any signs or symptoms of pulmonary embolism. Patient will be monitored today patient abdominal pain improved. Nausea improved if patient remains tachycardic probably can use a small dose of metoprolol I do not believe her tachycardia secondary to all call withdraws patient was recently started on Latuda which may be contributing to her tachycardia. Constitutional: Denied any fatigue denied any fever. Cardio vascular: denied any chest pain, palpitations Gastrointestinal as mentioned in HPI Pulmonary: Denied any shortness of breath cough Neurologic denied any new focal deficits All inpatient medications were reviewed and appropriate changes in these medications as dictated in the interval history and assessment and plan. Objective - Vital Signs Vital signs: Vital Signs Temp 98.4 F 10/23/20 07:00 Pulse 120 H 10/23/20 07:00 Resp 18 10/23/20 07:00 BP 129/80 10/23/20 07:00 Pulse Ox 95 10/23/20 07:00 Intake & Output 10/22/20 10/23/20 10/23/20 18:59 06:59 18:59 Output Total 1 Balance -1 Weight 68.946 kg Output: Emesis 1 Other: Voiding Method Toilet Toilet # Voids 1 4 - Exam PHYSICAL EXAMINATION: GENERAL: The patient is alert and oriented x3, not in any acute distress. Well developed, well nourished. HEENT: Pupils are round and equally reacting to light. EOMI. No scleral icterus. No conjunctival pallor. Normocephalic, atraumatic. No pharyngeal erythema. No thyromegaly. CARDIOVASCULAR: S1 and S2 present. No murmurs, rubs, or gallops. PULMONARY: Chest is clear to auscultation, no wheezing or crackles. ABDOMEN: Soft, nontender, nondistended, normoactive bowel sounds. No palpable organomegaly. MUSCULOSKELETAL: No joint swelling or deformity. EXTREMITIES: No cyanosis, clubbing, or pedal edema. NEUROLOGICAL: Gross neurological examination did not reveal any focal deficits. SKIN: No rashes. - Labs CBC & Chem 7: 10/23/20 04:39 10/23/20 04:39 Labs: Abnormal Lab Results - Last 24 Hours (Table) 10/23/20 10/23/20 Range/Units 04:39 04:39 RBC 3.62 L (4.10-5.20) X 10*6/uL Hgb 9.1 L (12.0-15.0) g/dL Hct 31.4 L (37.2-46.3) % MCH 25.1 L (27.0-32.0) pg MCHC 29.0 L (32.0-37.0) g/dL RDW 16.4 H (11.5-14.5) % BUN 6.0 L (9.0-27.0) mg/dL Creatinine 0.4 L (0.6-1.5) mg/dL Glucose 61 L (70-110) mg/dL Calcium 7.4 L (8.7-10.3) mg/dL Magnesium 1.4 L (1.5-2.4) mg/dL AST 52 H (13-35) U/L ALT 55 H (8-44) U/L Total Protein 5.9 L (6.2-8.2) g/dL Assessment and Plan Plan: -Alcoholic gastritis leading to nausea vomiting: Patient will be on Protonix twice a day IV fluids. Patient hemoglobin did drop this is secondary to IV hydration. Patient pain did improve -Lactic acidosis secondary to severe dehydration from nausea vomiting as well as alcoholism IV fluids as mentioned above -Continued tachycardia: Etiology and workup as mentioned in the interval history -Hypomagnesemia seconded all call is unable to be replaced -Acute alcoholic hepatitis: improving -Alcohol abuse -Alcohol withdrawal: Patient will be on Ativan [facility] protocol -Hypokalemia potassium will be replaced -Asymptomatic bacteriuria will not require any antibiotics patient doesn't have any UTI symptoms.
[2020-10-23] MEDS ORDERED: LURASIDONE 20 MG TAB PO SCH (21:00)
[2020-10-24] MEDS: NICOTINE 21MG/24HR PATCH TRANSDERM SCH (07:08)
[2020-10-24] MEDS: PANTOPRAZOLE 40 MG/10 ML VIAL IV SCH (07:08)
[2020-10-24] MEDS: THIAMINE 100 MG TAB PO SCH (07:09)
[2020-10-24] MEDS: SODIUM CHLORIDE 0.9% 1,000 ML IV SCH (07:12)
[2020-10-24 09:00] VITALS: BP 126/86; PULSE 93; TEMP 98
[2020-10-24 09:52] LABS: African American GFR (CKD) 165.4 (60.0-200.0); Anion Gap 7.2 mmol/L (4.00-12.00); BUN/Creat Ratio 12.5 Ratio (12.00-20.00); Calcium 8.1 mg/dL (8.7-10.3); Carbon Dioxide 24.8 mmol/L (21.6-31.8); Magnesium 2.1 mg/dL (1.5-2.4); Non-African American GFR(CKD) 142.7 (60.0-200.0); Potassium 4.1 mmol/L (3.5-5.5)
--- NOTE | 2020-10-25 23:59 | P.DS ---
Providers Date of admission: 10/22/20 15:24 Expected date of discharge: 10/24/20 Attending physician: Pollo Pinzon MD Primary care physician: Inez Sierra [facility] Course: Hospital course -Ms. Hermosillo is a 25-year-old female with history of anxiety and depression, ADHD coming in with a chief complaint of nausea and vomiting. Patient had multiple episodes of vomiting. She admits to drinking heavy alcohol, about 1/5 of hard liquor every day. In the ER patient was found to have lactic acidosis and was dehydrated. So admitted for further management. In the hospital, her electrolytes have been replaced she was put on CIWA scale required Ativan. Patient's nausea abdominal pain improved. On 10/25/2020 -patient was seen and examined at the bedside. Patient denies having any nausea or vomiting. Patient denies having any tremors and states that she is ready to go home. She states that she is determined not to drink alcohol anymore. PHYSICAL EXAMINATION: Temperature 98, heart rate 93, respiratory rate 18, blood pressure 136/86, saturating at 98 on room air. GENERAL: The patient is alert and oriented x3, not in any acute distress. Well developed, well nourished. HEENT: Pupils are round and equally reacting to light. EOMI. No scleral icterus. No conjunctival pallor. Normocephalic, atraumatic. No pharyngeal erythema. No thyromegaly. CARDIOVASCULAR: S1 and S2 present. No murmurs, rubs, or gallops. PULMONARY: Chest is clear to auscultation, no wheezing or crackles. ABDOMEN: Soft, nontender, nondistended, normoactive bowel sounds. No palpable organomegaly. MUSCULOSKELETAL: No joint swelling or deformity. EXTREMITIES: No cyanosis, clubbing, or pedal edema. NEUROLOGICAL: Gross neurological examination did not reveal any focal deficits. SKIN: No rashes. DISCHARGE DIAGNOSIS Alcoholic gastritis Lactic acidosis secondary to nausea and vomiting Hypomagnesemia Acute alcoholic hepatitis Alcohol withdrawal Hypokalemia Asymptomatic bacteriuria Follow-up: Discussed extensively the side effects and long-term complications of alcoholism. Patient is determined not to drink alcohol anymore. She states that she will be going to rehabilitation. Patient is being discharged on multivitamin, thiamine and folic acid supplements she is advised to follow-up with her PCP in 2 to 3 days. Spent more than 35 min for the discharge. Patient Condition at Discharge: Fair Plan - Discharge Summary New Discharge Prescriptions: New Folic Acid 1 mg PO DAILY #30 tablet Thiamine [Vitamin B-1] 100 mg PO DAILY #30 tablet Continue Buprenorphine HCl/Naloxone HCl [Suboxone 8 mg-2 mg Sl Film] 1 film SUBLINGUAL BID PRN PRN Reason: chronic pain Ondansetron Odt [Zofran ODT] 4 mg PO Q8H PRN PRN Reason: Nausea And Vomiting Aspirin/Acetaminophen/Caffeine [Excedrin Migraine Caplet] 1 tab PO DAILY PRN PRN Reason: Migraine Headache Lurasidone [Latuda] 20 mg PO HS Discharge Medication List Aspirin/Acetaminophen/Caffeine [Excedrin Migraine Caplet] 1 tab PO DAILY PRN 10/22/20 [History] Buprenorphine HCl/Naloxone HCl [Suboxone 8 mg-2 mg Sl Film] 1 film SUBLINGUAL BID PRN 10/22/20 [History] Lurasidone [Latuda] 20 mg PO HS 10/22/20 [History] Ondansetron Odt [Zofran ODT] 4 mg PO Q8H PRN 10/22/20 [History] Folic Acid 1 mg PO DAILY #30 tablet 10/24/20 [Rx] Thiamine [Vitamin B-1] 100 mg PO DAILY #30 tablet 10/24/20 [Rx] Follow up Appointment(s)/Referral(s): Rigo Wiley MD [Primary Care Provider] - 1-2 days Patient Instructions/Handouts: Abuse of Alcohol (DC) Discharge Disposition: HOME SELF-CARE
== END 2020-10-24 12:30 | disposition home or self-care (01) ==
LOC: EC 12:49 → 6NMEDSUR 15:24
PROVIDERS: ADMIT Internal Medicine; ATTEND Internal Medicine
DX: K29.20 Alcoholic gastritis without bleeding (principal); E87.2 Acidosis; E83.42 Hypomagnesemia; K70.10 Alcoholic hepatitis without ascites; F10.239 Alcohol dependence with withdrawal, unspecified; E87.6 Hypokalemia; R82.71 Bacteriuria; F41.9 Anxiety disorder, unspecified; F32.9 Major depressive disorder, single episode, unspecified; F90.9 Attention-deficit hyperactivity disorder, unspecified type; E86.0 Dehydration; G89.29 Other chronic pain; G43.909 Migraine, unspecified, not intractable, without status migrainosus; F17.210 Nicotine dependence, cigarettes, uncomplicated; R00.0 Tachycardia, unspecified; F41.0 Panic disorder [episodic paroxysmal anxiety]; Z86.14 Personal history of Methicillin resistant Staphylococcus aureus infection; Z79.82 Long term (current) use of aspirin; Z79.899 Other long term (current) drug therapy; Z79.891 Long term (current) use of opiate analgesic; Z88.5 Allergy status to narcotic agent; Z88.8 Allergy status to other drugs, medicaments and biological substances; Z88.1 Allergy status to other antibiotic agents; H16.9 Unspecified keratitis; Z20.822 Contact with and (suspected) exposure to COVID-19
CPT/HCPCS: 96376 ×3; 96361 ×4; 96366 ×2; 96367; 96365; 96372; 96375; 99285; 36415; 93005; 80053 ×2; 80048; 82150; 83605; 83690; 83735 ×3; 84484; 85025 ×2; 85610; 85730; 81001; 81025; 87635; 74018; G0378 ×3; S4990 ×2; J2060 ×2; J3411; J2405; J3475; J3480; C9113 ×3

== ENCOUNTER → 2024-12-23 | Outpatient (CLI) | payer OTHER ==
--- NOTE | 2024-12-23 15:15 | CT ---
EXAMINATION TYPE: CT soft tissue neck w con DATE OF EXAM: 12/23/2024 2:57 PM COMPARISON: None CLINICAL INDICATION: Female, 29 years old with history of R31.10 DIFFICULTY SWALLOWING E04.1 THYROID NODULE; PHH, dysphagia TECHNIQUE: CT scan of the neck is performed following with IV Contrast, patient injected with 100 mL of Isovue 3 00. Axial images are obtained, coronal and sagittal reformatted images are reviewed. CT DLP: [address] CTDI: mGy Automated exposure control for dose reduction was used. FINDINGS: Findings: There is mild enlargement of the right lobe the thyroid gland secondary to 2 ill-defined thyroid nodu les the largest of which is 17 mm. Correlate with thyroid ultrasound. Additional thyroid ultrasound m ay be indicated. The larynx including the thyroid, arytenoid, cricoid cartilages as well as the vocal cords are normal and symmetric without laryngeal mass. The tongue base, epiglottis, aryepiglottic folds, piriform sinuses and vallecula are normal and symme tric. There is no oral or nasal pharyngeal or parapharyngeal or pharyngeal soft tissue mass or enhancement. The submandibular glands and parotid glands are normal and symmetric. The great vessels of the neck are normal. There is no adenopathy or abscess within the neck. Visualized osseous structures are intact. Small mucous retention cyst or polyp in the right maxillary sinus. IMPRESSION: Mild asymmetric enlargement of the right lobe of the thyroid gland secondary to two right thyroid lob e nodules as described above. Correlate with thyroid ultrasound. Additional thyroid ultrasound may be indicated.. No other significant abnormality seen within the soft tissues of the neck. [facility], Workstation: [id number] 12/23/2024 3:13 PM
--- NOTE | 2024-12-24 08:13 | FL ---
EXAMINATION TYPE: FL barium swallow DATE OF EXAM: 12/23/2024 2:57 PM COMPARISON: Chest radiograph from 12/23/2024. CLINICAL INDICATION:Female, 29 years old with history of R31.10 DIFFICULTY SWALLOWING E04.1 THYROID N ODULE; TECHNIQUE: The procedure was explained and patient history elicited. All patient questions were ans wered prior to start of procedure. Multiple spot fluoroscopic images of the esophagus were obtained a fter the oral ingestion of effervescent crystals and liquid barium as the contrast agent. DAP: NOT REPORTED mGym2 FINDINGS: The esophagus demonstrates normal primary and secondary peristalsis. The esophageal mucosa is smooth without evidence of focal stricture, ulceration, or abnormal outpouching. No gastroesophageal reflu x disease was identified IMPRESSION: Normal esophagram. [facility], , 12/24/2024 8:10 AM
== END | disposition home or self-care (01) ==
LOC: RADCTMAIN 14:03
PROVIDERS: ATTEND Family Medicine
DX: R13.10 Dysphagia, unspecified (principal); E04.2 Nontoxic multinodular goiter
CPT/HCPCS: 74220; 70491; Q9967